=== PATIENT | female | born 1995 | race Caucasian/White ===

== ENCOUNTER 2020-08-09 14:54 | Emergency (ER) | payer BC, MEDICAID ==
[~2020-08-09] VITALS: Ht 180.3 cm; Wt 81.6 kg
[~2020-08-09 14:54] MED LIST: CLIN300C11 PO; SACC250C3 PO
[2020-08-09 15:00] VITALS: BP_SYST 161
[2020-08-09 15:44] LABS: BASOPHILS # (AUTO) 0.1 K/uL (0.0-0.2); BASOPHILS % (AUTO) 0.6 % (0.0-2.0); EOSINOPHILS % (AUTO) 0.5 % (0.0-4.0); HEMATOCRIT 38.8 % (36-48); HEMOGLOBIN 13.4 g/dL (12.0-16.0); LYMPHOCYTES # (AUTO) 3.2 K/uL (1.0-5.5); LYMPHOCYTES % (AUTO) 34.5 % (20.5-51.5); MEAN CORPUSCULAR HEMOGLOBIN 30 pg (27-31); MEAN CORPUSCULAR HGB CONC 35 % (32-36); MEAN CORPUSCULAR VOLUME 85 fL (79.0-98.0); NEUTROPHILS # (AUTO) 4.9 K/uL (1.8-7.7); NEUTROPHILS % (AUTO) 53.4 % (40.0-70.0); PLATELET COUNT (AUTO) 327 K/uL (130-430); RED BLOOD CELL COUNT(AUTO) 4.54 MIL/uL (4.2-6.2); RED CELL DISTRIBUTION WIDTH 13.8 % (9.0-15.0); WHITE BLOOD COUNT (AUTO) 9.2 K/uL (4.8-10.8)
[2020-08-09 15:53] LABS: CALCIUM 9.5 mg/dL (8.4-11.0); CREATININE 1.17 mg/dL (0.55-1.30); POTASSIUM 3.6 mmol/L (3.5-5.1)
[2020-08-09 15:59] VITALS: BP_SYST 161
[2020-08-09 15:59] LABS: ALBUMIN 4.4 g/dL (3.4-4.8); TOTAL BILIRUBIN 0.9 mg/dL (0.0-1.0)
== END 2020-08-09 15:50 | disposition left against medical advice (07) ==
LOC: SED 14:54
DX: F15.129 Other stimulant abuse with intoxication, unspecified (principal); R20.2 Paresthesia of skin; F12.90 Cannabis use, unspecified, uncomplicated
CPT/HCPCS: 36415; 80053; 85025; 99283

== ENCOUNTER 2020-11-13 17:16 | Emergency (ER) | payer MEDICAID ==
[~2020-11-13] VITALS: Ht 175.3 cm; Wt 68.9 kg
[2020-11-13 17:16] VITALS: BP_SYST 136
--- NOTE | 2020-11-13 17:19 | NUR ---
Patient triaged and placed on wall. VSS and patient appears in no acute distress at this time. Accompanied by fire protection engineering technician, awaiting available bed, and MD notified of need for MSE.
--- NOTE | 2020-11-13 17:53 | NUR ---
Patient left without being seen.
== END 2020-11-13 17:53 | disposition left against medical advice (07) ==
LOC: SED 17:16
DX: Z13.30 Encounter for screening examination for mental health and behavioral disorders, unspecified (principal); Z53.21 Procedure and treatment not carried out due to patient leaving prior to being seen by health care provider

== ENCOUNTER 2020-11-23 00:44 | Emergency (ER) | payer MEDICAID ==
[~2020-11-23] VITALS: Ht 172.7 cm; Wt 80.3 kg
[2020-11-23 00:44] VITALS: BP_SYST 120
--- NOTE | 2020-11-23 00:44 | NUR ---
Patient to ER bed 2 to gown for evaluation. Side rails up.
--- NOTE | 2020-11-23 00:50 | NUR ---
PT BIB ALS AGITATED, RESTLESS, AND COMBATIVE. BOYFRIEND OF PATIENT CALLED 911. PT STATING "MY HEART HAS STOPPED, MY HEART HAS STOPPED". PT GIVEN VERSED 5MG IVP BY MEDICS PRIOR TO ARRIVAL TO ER. PT HX OF DRUG ABUSE.
--- NOTE | 2020-11-23 01:00 | NUR ---
ER Dr. PINA at bedside examining patient.
[2020-11-23] MEDS ORDERED: LORazepam 2 MG/ML VIAL IVP ONE (01:15)
[2020-11-23] MEDS ORDERED: DIPHENHYDRAMINE INJ 50 MG/ML VIAL IVP ONE (01:15)
[2020-11-23] MEDS ORDERED: HALOPERIDOL LACTATE 5 MG/ML VIAL IM ONE (01:15)
[2020-11-23 02:22] LABS: ANION GAP 16 (5-15); CALCIUM 9.1 mg/dL (8.4-11.0); CHLORIDE 105 mmol/L (98-107); CREATININE 0.91 mg/dL (0.55-1.30); GLUCOSE 73 mg/dL (70-99); POTASSIUM 3.4 mmol/L (3.5-5.1); SODIUM SERUM 143 mmol/L (136-145); UREA NITROGEN, BLOOD 11 mg/dL (8-21)
[2020-11-23 02:27] LABS: ACETAMINOPHEN < 1 ug/mL (1-30); ALANINE AMINOTRANSFERASE 19 U/L (12-78); ALBUMIN 4.3 g/dL (3.4-4.8); ALCOHOL, BLOOD 48 mg/dL (<10); ASPARTATE AMINOTRANSFERASE 20 U/L (10-37); GFR AFRICAN AMERICAN 98 mL/min (>90); TOTAL BILIRUBIN 0.4 mg/dL (0.0-1.0)
--- NOTE | 2020-11-23 02:45 | NUR ---
LAB AT BEDSIDE DRAWING BLOOD.
--- NOTE | 2020-11-23 03:00 | NUR ---
# 16 FR In and Out catheter with use of sterile technique. Immediate return of 400 ml CLEAR YELLOW urine noted. Urine sample collected and sent to lab. Pt tolerated procedure WELL.
[2020-11-23 03:02] LABS: BASOPHILS # (AUTO) 0.1 K/uL (0.0-0.2); BASOPHILS % (AUTO) 0.9 % (0.0-2.0); EOSINOPHILS % (AUTO) 0.4 % (0.0-4.0); HEMATOCRIT 36.2 % (36-48); HEMOGLOBIN 12.2 g/dL (12.0-16.0); LYMPHOCYTES % (AUTO) 30.7 % (20.5-51.5); MEAN CORPUSCULAR HEMOGLOBIN 29 pg (27-31); MEAN CORPUSCULAR HGB CONC 34 % (32-36); MEAN CORPUSCULAR VOLUME 86 fL (79.0-98.0); MONOCYTES # (AUTO) 0.7 K/uL (0.0-1.0); MONOCYTES % (AUTO) 10.1 % (1.7-9.3); NEUTROPHILS # (AUTO) 3.8 K/uL (1.8-7.7); NEUTROPHILS % (AUTO) 57.9 % (40.0-70.0); PLATELET COUNT (AUTO) 258 K/uL (130-430); RED CELL DISTRIBUTION WIDTH 13.2 % (9.0-15.0); WHITE BLOOD COUNT (AUTO) 6.5 K/uL (4.8-10.8)
[2020-11-23 03:14] LABS: BILIRUBIN,URINE NEGATIVE (NEGATIVE); BLOOD, URINE NEGATIVE (NEGATIVE); CLARITY/URINE CLEAR (CLEAR); COLOR,URINE YELLOW (YELLOW); GLUCOSE,URINE NEGATIVE (NEGATIVE); KETONES,URINE NEGATIVE (NEGATIVE); LEUKOCYTE ESTERASE ,URINE NEGATIVE (NEGATIVE); NITRITE, URINE NEGATIVE (NEGATIVE); PROTEIN URINE NEGATIVE (NEGATIVE); UROBILINOGEN,URINE 0.2 (0.2-1.0)
[2020-11-23 03:24] LABS: BARBITURATE, URINE NEGATIVE (NEG <=200); BENZODIAZEPINE, URINE NEGATIVE (NEG <=150); CANNABINOID, URINE POSITIVE (NEG <=50); COCAINE, URINE NEGATIVE (NEG <=150); METHAMPHETAMINES SCREEN,URINE NEGATIVE (NEG <=500); OPIATE, URINE NEGATIVE (NEG <=100); PHENCYCLIDINE SCREEN,URINE NEGATIVE (NEG <=25); UR TRICYCLIC ANTIDEPRESSANTS NEGATIVE (NEG <=300); URINE AMPHETAMINE NEGATIVE (NEG <=500); URINE METHADONE NEGATIVE (NEG <=200); URINE OXYCODONE SCREEN NEGATIVE (NEG <=100); URINE PROPOXYPHENE SCREEN NEGATIVE (NEG <=300)
--- NOTE | 2020-11-23 04:40 | NUR ---
COVID SWAB COLLECTED AND SENT TO LAB.
--- NOTE | 2020-11-23 05:48 | NUR ---
Patient transported to radiology via GURNEY, accompanied by MRAU.
--- NOTE | 2020-11-23 05:57 | NUR ---
PATIENT RETURNED FROM RADIOLOGY IN STABLE CONDITION.
--- NOTE | 2020-11-23 06:12 | NUR ---
VITAL SIGNS STABLE. PATIENT SLEEPING COMFORTABLY IN BED. BREATHING EVEN AND UNLABORED. NO SIGNS OF ACUTE DISTRESS. IV PATENT, NO SIGNS OF INFILTRATION. WILL CONTINUE TO MONITOR.
--- NOTE | 2020-11-23 07:19 | NUR ---
spoke with patients boyfriend, Richard, who is coming to pick her up right now for discharge.
--- NOTE | 2020-11-23 07:20 | NUR ---
report given to BRIDGET Chadwick.
[2020-11-23 08:45] VITALS: BP_SYST 123
--- NOTE | 2020-11-23 08:45 | NUR ---
Patient given written and verbal discharge instructions and verbalizes understanding. ER MD discussed with patient the results and treatment provided. Patient in stable condition. ID arm band removed. Rx of NONE given. Patient educated on pain management and to follow up with PMD. Pain Scale 0/10 Opportunity for questions provided and answered. Medication side effect fact sheet provided.
== END 2020-11-23 08:45 | disposition home or self-care (01) ==
LOC: SED 00:44
DX: R45.1 Restlessness and agitation (principal); F10.129 Alcohol abuse with intoxication, unspecified; F15.90 Other stimulant use, unspecified, uncomplicated; Z79.899 Other long term (current) drug therapy; Z20.828 Contact with and (suspected) exposure to other viral communicable diseases
CPT/HCPCS: 36415; 70450; 76376; 80053; 80307; 81003; 81025; 82140; 85025; 87426; 96372; 96374; 96375; 99285; G0480; G0481; G0482; J1200; J1630; J2060

== ENCOUNTER 2022-06-20 01:28 | Emergency (ER) | payer OTHER, MEDICAID ==
[~2022-06-20] VITALS: Ht 180.3 cm; Wt 104.3 kg
[~2022-06-20 01:28] MED LIST changes: +CLIN-142 PO; -CLIN300C11 PO
[2022-06-20 01:30] VITALS: BP_SYST 130
[2022-06-20] MEDS ORDERED: ONDANSETRON HCL 4 MG/2 ML VIAL ONE (01:42)
[2022-06-20] MEDS ORDERED: NACL 0.9% 1,000 ML IV ONE (01:45)
[2022-06-20] MEDS ORDERED: ONDANSETRON HCL 4 MG/2 ML VIAL IVP ONE (01:45)
[2022-06-20 01:56] LABS: BASOPHILS # (AUTO) 0.1 K/uL (0.0-0.2); BASOPHILS % (AUTO) 0.9 % (0.0-2.0); EOSINOPHILS % (AUTO) 0.2 % (0.0-4.0); HEMOGLOBIN 13.1 g/dL (12.0-16.0); LYMPHOCYTES # (AUTO) 2.5 K/uL (1.0-5.5); LYMPHOCYTES % (AUTO) 26.9 % (20.5-51.5); MEAN CORPUSCULAR HEMOGLOBIN 29 pg (27-31); MEAN CORPUSCULAR HGB CONC 35 % (32-36); MEAN CORPUSCULAR VOLUME 85 fL (79.0-98.0); MONOCYTES # (AUTO) 0.4 K/uL (0.0-1.0); MONOCYTES % (AUTO) 4.6 % (1.7-9.3); NEUTROPHILS # (AUTO) 6.3 K/uL (1.8-7.7); NEUTROPHILS % (AUTO) 67.4 % (40.0-70.0); PLATELET COUNT (AUTO) 283 K/uL (130-430); RED BLOOD CELL COUNT(AUTO) 4.46 MIL/uL (4.2-6.2); RED CELL DISTRIBUTION WIDTH 13.2 % (9.0-15.0); WHITE BLOOD COUNT (AUTO) 9.3 K/uL (4.8-10.8)
[2022-06-20 02:13] LABS: CALCIUM 8.3 mg/dL (8.4-11.0); CREATININE 1.02 mg/dL (0.55-1.30); POTASSIUM 3.6 mmol/L (3.5-5.1)
[2022-06-20 02:20] LABS: ALBUMIN 3.3 g/dL (3.4-4.8); TOTAL BILIRUBIN 0.3 mg/dL (0.0-1.0)
== END 2022-06-20 03:00 | disposition left against medical advice (07) ==
LOC: SED 01:28
DX: F10.129 Alcohol abuse with intoxication, unspecified (principal); Z79.899 Other long term (current) drug therapy; Y90.9 Presence of alcohol in blood, level not specified
CPT/HCPCS: 99283; 96374; 96361; 80053; 84702; 85025; 36415; J2405; J7030